=== PATIENT | female | born 1990 | race Caucasian/White ===

== ENCOUNTER → 2016-10-01 | Outpatient (CLI) | payer OTHER ==
[2016-10-01 16:00] LABS: HEPATITIS B AB NEG
[2016-10-06 00:24] LABS: MUMPS IgG VALUE 3.85
== END | disposition home or self-care (01) ==
LOC: C.LAB1850 14:33
PROVIDERS: ATTEND Physician Assistant
DX: Z00.00 Encounter for general adult medical examination without abnormal findings (principal)

== ENCOUNTER → 2017-10-24 | Outpatient (CLI) | payer OTHER ==
[2017-10-26 11:52] LABS: VARICELLA ZOS VIR IGG VALUE 734.3 INDEX
== END | disposition home or self-care (01) ==
LOC: C.LAB1850 12:44
PROVIDERS: ATTEND Physician Assistant
DX: Z00.00 Encounter for general adult medical examination without abnormal findings (principal)